=== PATIENT | female | born 1980 | race Caucasian/White ===

== ENCOUNTER 2023-05-24 17:25 | Emergency (ER) | payer OTHER, SELFPAY ==
[2023-05-24 17:38] VITALS: BP 169/106; PULSE 68; RESP 16; TEMP 36.7; O2SAT 98; BMI 46.2
--- NOTE | 2023-05-24 18:01 | ED_ITS ---
HPI - General Adult General Chief complaint: Extremity Problem, Nontraumatic Stated complaint: L SIDE PAIN Time Seen by Provider: 05/24/23 17:37 Source: patient Mode of arrival: walk-in Limitations: no limitations History of Present Illness HPI narrative: Patient with fibromyalgia, who sees Pain Management for chronic back pain and a Neurologist for neuropathic pain presents with 3 days of pain throughout the lef t arm and the left leg. No injury. No increase in low back pain. She has been moving some boxes and other items as she relocates to a new area. No fever or chills. She has never been evaluated for connective tissue disorder or rheumatological disease by her PCP, Dr Montenegro. She is currently prescribed meloxicam buy the orthopedist who evaluates her right knee pain and recommends knee surgery. She received tizanidine and gabapentin from her neurologist. Pain management performed injections for her back pain. Related Data Home Medications Medication Instructions Recorded Confirmed albuterol sulfate 90 mcg/actuation 2 puff inhalation Q6H PRN 05/24/23 05/24/23 aerosol inhaler shortness of breath or wheezing budesonide-formoterol HFA 80 2 inh inhalation Q12H 05/24/23 05/24/23 mcg-4.5 mcg/actuation aerosol inhaler cholecalciferol (vitamin D3) 125 125 mcg PO DAILY 05/24/23 05/24/23 mcg (5,000 unit) capsule fluoxetine 20 mg tablet 20 mg PO DAILY 05/24/23 05/24/23 gabapentin 600 mg tablet 600 mg PO Q8H 05/24/23 05/24/23 lamotrigine 200 mg tablet 200 mg PO Q12H 05/24/23 05/24/23 loratadine 10 mg tablet 10 mg PO Q24H 05/24/23 05/24/23 meloxicam 15 mg tablet 15 mg PO DAILY 05/24/23 05/24/23 omeprazole 40 mg capsule,delayed 40 mg PO DAILY 05/24/23 05/24/23 release tizanidine 4 mg tablet 4 mg PO Q8H PRN muscle spasticity 05/24/23 05/24/23 Allergies Allergy/AdvReac Type Severity Reaction Status Date / Time No Known Drug Allergies Allergy Verified 05/24/23 17:43 PFSH PFSH Social History Smoking status: Never smoker Exam Narrative Exam Narrative: Nurses notes and vital signs reviewed and patient is not hypoxic. afebrile General: Well-appearing and in no apparent distress. Skin: Warm, dry, no pallor noted. No rash. Head: Normocephalic, atraumatic. Neck: Supple, no posterior cervical lymphadenopathy Eye: Pupils are equal, round and EOMI. No scleral icterus. Cardiovascular: Regular Rate and Rhythm without murmur, gallop or rub. Respiratory: No accessory muscle use or respiratory distress. Lungs are clear to auscultation, no wheezing, rales or rhonchi Back: diffuse thoracic or lumbar spinal and paraspinal tenderness. No CVA tenderness Musculoskeletal: normal ROM, no calf or popliteal tenderness, no upper or lower extremity edema/swelling. no sign of long bone fracture and she is able to move the left upper and left lower extremity through normal range of motion. No ecchymosis, erythema, warmth or sign of infection is noted. No skin rash. Neurological: A&O x4. No cranial nerve dysfunction observed. No truncal ataxia. Moves all extremities. Sensation intact. Psychiatric: Cooperative and interactive. Normal mood and affect. Constitutional Vital Signs, click to edit/add: Last Vital Signs Temp 98.1 F 05/24/23 17:38 Pulse 68 05/24/23 17:38 Resp 16 05/24/23 17:38 BP 169/106 H 05/24/23 17:38 Pulse Ox 98 05/24/23 17:38 O2 Del Method Room Air 05/24/23 17:38 Course Vital Signs Vital signs: Vital Signs Temperature 98.1 F 05/24/23 17:38 Pulse Rate 68 05/24/23 17:38 Respiratory Rate 16 05/24/23 17:38 Blood Pressure 169/106 H 05/24/23 17:38 Pulse Oximetry 98 05/24/23 17:38 Oxygen Delivery Method Room Air 05/24/23 17:38 Temperature 98.1 F 05/24/23 17:38 Pulse Rate 68 05/24/23 17:38 Respiratory Rate 16 05/24/23 17:38 Blood Pressure 169/106 H 05/24/23 17:38 Pulse Oximetry 98 05/24/23 17:38 Oxygen Delivery Method Room Air 05/24/23 17:38 Medical Decision Making [facility] [place] Narrative Medical decision making narrative: this patient presents with polymyalgia involving the left upper extremity and left lower extremity that is diffuse and without focal findings on physical examination. She is also without trauma. No benefit to radiographic testing as nontrauma related and she has normal range of motion in the expected strength without bony tenderness or deformity suggestive of long bone fracture. Who suffers from polymyalgia and has chronic pain with previous diagnosis of fibromyalgia. She likely has regional pain syndrome, rheumatoid or some other connective tissue disorder which needs further workup. This is not appropriate for the emergency department, this is more appropriate for the patient's primary care provider, Dr. Montenegro. she received IM Solu-Medrol and IM Toradol and was discharged home. She needs to get all of her prescriptions through a single provider and I recommend that she start with her primary care provider, Dr. Montenegro, requesting a rheumatological workup and then see her or pain management to get her prescription so that she does not have multiple providers prescribing multiple medicines for pain Discharge Plan Discharge Chief Complaint: Extremity Problem, Nontraumatic Clinical Impression: Polymyalgia Patient Disposition: Home, Self-Care Time of Disposition Decision: 18:01 Prescriptions / Home Meds: No Action gabapentin 600 mg tablet 600 mg PO Q8H lamotrigine 200 mg tablet 200 mg PO Q12H tizanidine 4 mg tablet 4 mg PO Q8H PRN (Reason: muscle spasticity) meloxicam 15 mg tablet 15 mg PO DAILY omeprazole 40 mg capsule,delayed release(DR/EC) 40 mg PO DAILY fluoxetine 20 mg tablet 20 mg PO DAILY albuterol sulfate 90 mcg/actuation HFA aerosol inhaler 2 puff INHALATION Q6H PRN (Reason: shortness of breath or wheezing) cholecalciferol (vitamin D3) 125 mcg (5,000 unit) capsule 125 mcg PO DAILY loratadine 10 mg tablet 10 mg PO Q24H budesonide-formoterol 80-4.5 mcg/actuation HFA aerosol inhaler 2 inh INHALATION Q12H Instructions: Polymyalgia Rheumatica (ED) Stand Alone Forms: Portal Instructions Referrals: QI MONTENEGRO [Primary Care Provider] - 1 week
[2023-05-24] MEDS: METHYLPREDNISOLONE SOD SUCC PF 125 MG/2 ML VIAL IM (18:22)
[2023-05-24] MEDS: KETOROLAC TROMETHAMINE 60 MG/2 ML VIAL IM (18:23)
== END 2023-05-24 18:31 | disposition home or self-care (01) ==
PROVIDERS: Emergency Provider Emergency Medicine; PCP Family Medicine
DX: M35.3 Polymyalgia rheumatica (principal); M79.7 Fibromyalgia; Z79.899 Other long term (current) drug therapy; G89.29 Other chronic pain
CPT/HCPCS: 96372; 99284; J2930